=== PATIENT | male | born 1990 | race African-American/Black ===

== ENCOUNTER 2019-02-06 21:19 | Emergency (ER) | payer MEDICAID ==
[~2019-02-06] VITALS: Ht 170.2 cm; Wt 63.6 kg
[2019-02-07] MEDS ORDERED: ERYTHROMYCIN BASE 0.5% OPHTH OINT 3.5GM LEFTEYE STA (00:29)
[2019-02-07 00:53] VITALS: BP 120/72
== END 2019-02-07 01:06 | disposition home or self-care (01) ==
LOC: ER 21:19
DX: H01.004 Unspecified blepharitis left upper eyelid (principal); F12.10 Cannabis abuse, uncomplicated
CPT/HCPCS: 99282; 99283